=== PATIENT | female | born 1985 | race Two or more races ===

== ENCOUNTER 2024-06-17 18:43 | Observation (INO) ==
[2024-06-17] MEDS ORDERED: SUPRANE ONE (20:34)
[2024-06-17 22:25] VITALS: BMI 33.1
[2024-06-17] MEDS: PROTONIX INJ 40 MG VIAL IVP SCH (22:45)
[2024-06-17] MEDS: D5 1/2 NS 1,000 ML 1,000 ML IV SCH (22:45)
[2024-06-17] MEDS: ZOSYN VIAL 3.375 GRAMS 3.375 G in NS 100 ML IV 100 ML IV SCH (23:22)
[2024-06-18] MEDS: ZOFRAN INJ 4 MG VIAL IVP PRN (01:57)
[2024-06-18] MEDS: DILAUDID INJ IVP PRN ×2 (02:08→10:13)
[2024-06-18] MEDS ORDERED: HIBICLENS WASH ONE (05:03)
[2024-06-18] MEDS: HIBICLENS WASH EXT ONE (05:14)
[2024-06-18] MEDS: NS 250 ML IV 25 ML IV PRN (05:55)
[2024-06-18 07:30] LABS: BASOPHILS # (AUTO) 0.1 X10^3/uL (0.0-0.1); BASOPHILS % (AUTO) 1.1 % (0.2-1.0); EOSINOPHILS % (AUTO) 0.4 % (0.9-2.9); HEMATOCRIT 37.5 % (36.0-47.0); HEMOGLOBIN 12.5 g/dL (12.0-16.0); LYMPHOCYTES # (AUTO) 1.4 X10^3/uL (1.3-2.9); LYMPHOCYTES % (AUTO) 13.8 % (21.0-51.0); MEAN CORPUSCULAR HEMOGLOBIN 28.7 pg (27.0-34.0); MEAN CORPUSCULAR HGB CONC 33.4 g/dL (33.0-35.0); MEAN CORPUSCULAR VOLUME 85.9 fL (80.0-100.0); MONOCYTES # (AUTO) 0.9 x10^3/uL (0.3-0.8); MONOCYTES % (AUTO) 8.6 % (0.0-13.0); NEUTROPHILS # (AUTO) 7.8 x10^3/uL (2.2-4.8); NEUTROPHILS % (AUTO) 76.1 % (42.0-75.0); PLATELET COUNT 282 X10^3/uL (150.0-450.0); RED BLOOD COUNT 4.37 X10^6/uL (3.5-5.4); WHITE BLOOD COUNT 10.3 X10^3/uL (3.6-10.0)
[2024-06-18 07:40] LABS: ALANINE AMINOTRANSFERASE 27 Units/L (12-78); ALKALINE PHOSPHATASE 77 Units/L (46-116); ASPARTATE AMINO TRANSFERASE 17 Units/L (15-37); BLOOD UREA NITROGEN 6 mg/dL (7-18); CARBON DIOXIDE 26.7 mmol/L (21-32); CHLORIDE 103 mmol/L (98-107); COR CA(FOR HYPOALB) 8.8 mg/dL (8.5-10.1); COR NA(FOR HYPERGLY) 141 mmol/L (136-145); CREATININE 0.78 mg/dL (0.55-1.02); GLUCOSE 123 mg/dL (65-99); POTASSIUM 3.9 mmol/L (3.5-5.1); SODIUM 140 mmol/L (136-145); TOTAL PROTEIN 7.1 g/dL (6.4-8.2); eGFR NON BLACK RACES > 60 (>60)
[2024-06-18] MEDS: NOZIN NASAL SANITIZER TP ONE (07:57)
[2024-06-18] MEDS: BRIDION ONE (08:00)
[2024-06-18] MEDS: FENTANYL VIAL INJ 100 mcg ONE (08:00)
[2024-06-18] MEDS: DIPRIVAN VIAL 20 ML ONE (08:00)
[2024-06-18] MEDS: VERSED ONE (08:00)
[2024-06-18] MEDS: OFIRMEV IV 1000 MG VIAL 1,000 MG/100 ML VIAL IV ONE (08:00)
[2024-06-18] MEDS: REGLAN INJ 10 MG VIAL ONE (08:01)
[2024-06-18] MEDS: ZOFRAN INJ 4 MG VIAL ONE (08:01)
[2024-06-18] MEDS: PEPCID 20 MG VIAL ONE (08:01)
[2024-06-18] MEDS: ZEMURON 100 MG VIAL ONE (08:01)
[2024-06-18] MEDS: TORADOL 30 MG VIAL ONE (08:01)
[2024-06-18] MEDS: ANCEF VIAL 1 GRAM ONE (08:05)
[2024-06-18] MEDS: LR 1,000 ML IV 1,000 ML IV ONE (08:05)
[2024-06-18] MEDS: NS 100 ML IV 0 ML ONE (08:05)
[2024-06-18] MEDS: BACTROBAN TOPICAL OINT ONE (08:06)
[2024-06-18] MEDS ORDERED: REGLAN INJ 10 MG VIAL IVP PRN (09:04)
[2024-06-18] MEDS ORDERED: BARHEMSYS INJ IVP PRN (09:04)
[2024-06-18] MEDS ORDERED: ZOFRAN INJ 4 MG VIAL IVP PRN (09:04)
[2024-06-18] MEDS ORDERED: BENADRYL INJ 50 MG VIAL IVP PRN (09:04)
[2024-06-18] MEDS: SUPRANE ONE (09:36)
[2024-06-18] MEDS: NS 1,000 ML IV 2,000 ML ONE (09:38)
[2024-06-18] MEDS ORDERED: MORPHINE SULFATE INJ 2 MG INJ IVP PRN (10:09)
[2024-06-18] MEDS: D5 1/2 NS 1,000 ML 1,000 ML IV SCH (10:45)
[2024-06-18] MEDS ORDERED: NS 250 ML IV 250 ML IV ONE (11:41)
[2024-06-18] MEDS: MORPHINE SULFATE INJ 2 MG INJ IVP PRN (14:35)
[2024-06-18] MEDS: DILAUDID INJ ONE (19:45)
[2024-06-19 06:20] LABS: BASOPHILS % (AUTO) 0.3 % (0.2-1.0); EOSINOPHILS # (AUTO) 0.1 x10^3/uL (0.0-0.2); EOSINOPHILS % (AUTO) 0.7 % (0.9-2.9); HEMATOCRIT 35.2 % (36.0-47.0); HEMOGLOBIN 11.8 g/dL (12.0-16.0); LYMPHOCYTES # (AUTO) 1.8 X10^3/uL (1.3-2.9); MEAN CORPUSCULAR HEMOGLOBIN 28.8 pg (27.0-34.0); MEAN CORPUSCULAR HGB CONC 33.6 g/dL (33.0-35.0); MEAN CORPUSCULAR VOLUME 85.8 fL (80.0-100.0); MEAN PLATELET VOLUME 8.4 fL (7.4-11.0); MONOCYTES # (AUTO) 0.6 x10^3/uL (0.3-0.8); MONOCYTES % (AUTO) 8.2 % (0.0-13.0); NEUTROPHILS # (AUTO) 5.1 x10^3/uL (2.2-4.8); NEUTROPHILS % (AUTO) 66.8 % (42.0-75.0); PLATELET COUNT 271 X10^3/uL (150.0-450.0); RED CELL DISTRIBUTION WIDTH 14.2 % (11.6-16.5); WHITE BLOOD COUNT 7.7 X10^3/uL (3.6-10.0)
[2024-06-19 06:55] LABS: ALANINE AMINOTRANSFERASE 42 Units/L (12-78); ALBUMIN 2.6 g/dL (3.4-5.0); ALKALINE PHOSPHATASE 72 Units/L (46-116); ASPARTATE AMINO TRANSFERASE 37 Units/L (15-37); BLOOD UREA NITROGEN 1 mg/dL (7-18); CALCIUM 8.4 mg/dL (8.5-10.1); CARBON DIOXIDE 27.8 mmol/L (21-32); CHLORIDE 105 mmol/L (98-107); COR CA(FOR HYPOALB) 9.5 mg/dL (8.5-10.1); CREATININE 0.71 mg/dL (0.55-1.02); GLUCOSE 106 mg/dL (65-99); POTASSIUM 3.6 mmol/L (3.5-5.1); SODIUM 141 mmol/L (136-145); TOTAL PROTEIN 6.8 g/dL (6.4-8.2); eGFR NON BLACK RACES > 60 (>60)
[2024-06-19 09:53] VITALS: BP 128/80; PULSE 84; RESP 18; TEMP 98.2; O2SAT 97
== END 2024-06-19 12:00 | disposition home or self-care (01) ==
LOC: MED/SURG
PROVIDERS: ADMIT Surgery; ATTEND Surgery
DX: K82.1 Hydrops of gallbladder; R11.2 Nausea with vomiting, unspecified; R10.11 Right upper quadrant pain; K82.8 Other specified diseases of gallbladder; R10.84 Generalized abdominal pain; K80.12 Calculus of gallbladder with acute and chronic cholecystitis without obstruction